=== PATIENT | male | born 1985 | race African-American/Black ===

== ENCOUNTER 2017-02-19 12:46 | Emergency (ER) | payer BC ==
[~2017-02-19] VITALS: Ht 182.9 cm; Wt 67.2 kg
[~2017-02-19 12:46] MED LIST: MOTRIN600 MG PO; NAPROXEN500 MG PO; PEN-VEE K,VEET500 MG PO
[2017-02-19] MEDS ORDERED: NAPROSYN500 MG PO (13:48)
[2017-02-19] MEDS ORDERED: PEN-VEE K,VEET500 MG PO (13:48)
[2017-02-19] MEDS ORDERED: ULTRAM50 MG PO (13:48)
[2017-02-19 14:13] VITALS: BP 144/71
== END 2017-02-19 14:14 | disposition home or self-care (01) ==
LOC: EME 12:46
DX: S02.5XXA Fracture of tooth (traumatic), initial encounter for closed fracture (principal)
CPT/HCPCS: 99281; 99283